=== PATIENT | female | born 1945 | race Caucasian/White ===

== ENCOUNTER 2019-04-22 12:19 | Emergency (ER) | payer MEDICARE ==
[2019-04-22] MEDS ORDERED: Rabies Immune Globulin 1500 UNITS/10 ML VIAL IM SCH (14:30)
[2019-04-22] MEDS ORDERED: Rabies Vaccine Human 2.5 UNITS VIAL IM ONE (14:30)
== END 2019-04-22 15:30 | disposition home or self-care (01) ==
LOC: ERS 12:19
DX: S61.551A Open bite of right wrist, initial encounter (principal); M06.9 Rheumatoid arthritis, unspecified; Z79.891 Long term (current) use of opiate analgesic; Z79.899 Other long term (current) drug therapy; W54.0XXA Bitten by dog, initial encounter
CPT/HCPCS: 90375; 90376; 90471; 90675; 96372

== ENCOUNTER 2019-05-01 11:02 | Emergency (ER) | payer MEDICARE ==
--- NOTE | 2019-05-01 11:33 | RAD ---
2 views of the left hip: 05/01/2019 COMPARISON: None HISTORY: Left hip pain FINDINGS: No fracture or dislocation. No radiopaque foreign body or subcutaneous gas. IMPRESSION: No acute findings. There is mild superior joint space narrowing. There is mild lateral ac etabular osteophyte formation. Mild degenerative change of the pubic symphysis noted. No acute fracture or dislocation. Pression: No acute osseous abnormality.
[2019-05-01] MEDS ORDERED: Ketorolac Tromethamine 30 MG/ML VIAL ONE (12:19)
[2019-05-01] MEDS ORDERED: HYDROcodone/Acetaminophen 5/325 mg Tablet ONE (12:19)
== END 2019-05-01 12:38 | disposition home or self-care (01) ==
LOC: ERS 11:02
DX: M25.552 Pain in left hip (principal); E03.9 Hypothyroidism, unspecified; M06.9 Rheumatoid arthritis, unspecified; W18.30XA Fall on same level, unspecified, initial encounter
CPT/HCPCS: 96372; J1885